=== PATIENT | male | born 1990 | race Caucasian/White ===

== ENCOUNTER → 2017-02-06 | Outpatient (CLI) | payer OTHER ==
[~2017-02-06] MED LIST: NOHOMEMEDICATIONS
[2017-02-06 14:20] VITALS: BP 136/81
[2017-02-06 14:35] VITALS: BP 137/83
== END ==
LOC: OPONC 06:31
DX: D75.1 Secondary polycythemia (principal)
CPT/HCPCS: 95100

== ENCOUNTER → 2017-03-01 | Outpatient (CLI) | payer OTHER ==
[2017-03-01 14:05] VITALS: BP 142/74
[2017-03-01 14:21] VITALS: BP 131/75
[2017-03-01 14:40] LABS: HEMOGLOBIN 19.9 gm/dL (14.0-18.0)
[2017-03-01 14:41] LABS: HEMATOCRIT 60.1 % (42.0-52.0)
== END ==
LOC: OPONC 00:18 → CATH 12:02 → OPONC 12:04
PROVIDERS: Family Medicine
DX: D75.1 Secondary polycythemia (principal)
CPT/HCPCS: 95100

== ENCOUNTER → 2017-04-05 | Outpatient (CLI) | payer OTHER ==
[2017-04-05 14:15] VITALS: BP 136/70
[2017-04-05 14:35] VITALS: BP 144/73
[2017-04-05 14:46] LABS: HEMOGLOBIN 20.2 gm/dL (14.0-18.0)
[2017-04-05 14:48] LABS: HEMATOCRIT 60.7 % (42.0-52.0)
== END ==
LOC: OPONC 00:59
PROVIDERS: Family Medicine
DX: D75.1 Secondary polycythemia (principal)
CPT/HCPCS: 95100

== ENCOUNTER → 2017-04-11 | Outpatient (CLI) | payer OTHER ==
[2017-04-11 10:20] VITALS: BP 131/68
[2017-04-11 10:40] VITALS: BP 123/72
[2017-04-11 10:52] LABS: HEMATOCRIT 57.7 % (42.0-52.0); HEMOGLOBIN 19.3 gm/dL (14.0-18.0)
== END ==
LOC: OPONC 02:22
PROVIDERS: Family Medicine
DX: D75.1 Secondary polycythemia (principal)
CPT/HCPCS: 95100

== ENCOUNTER → 2017-05-10 | Outpatient (CLI) | payer OTHER ==
[2017-05-10 13:45] VITALS: BP 131/71
[2017-05-10 14:05] VITALS: BP 135/85
[2017-05-10 14:33] LABS: HEMOGLOBIN 18.7 gm/dL (14.0-18.0)
== END ==
LOC: OPONC 05-03 09:16
PROVIDERS: Family Medicine
DX: D75.1 Secondary polycythemia (principal)
CPT/HCPCS: 95100

== ENCOUNTER → 2017-06-07 | Outpatient (CLI) | payer OTHER ==
[2017-06-07 14:20] VITALS: BP 145/70
[2017-06-07 14:40] VITALS: BP 150/69
[2017-06-07 14:59] LABS: HEMATOCRIT 54.4 % (42.0-52.0); HEMOGLOBIN 17.7 gm/dL (14.0-18.0)
== END ==
LOC: OPONC 08:06
PROVIDERS: Family Medicine
DX: D75.1 Secondary polycythemia (principal)
CPT/HCPCS: 95100

== ENCOUNTER → 2018-03-28 | Outpatient (CLI) | payer OTHER ==
[2018-03-28 15:00] VITALS: BP 130/82
[2018-03-28 15:16] LABS: HEMOGLOBIN 18.9 gm/dL (14.0-18.0)
[2018-03-28 15:35] VITALS: BP 152/74
== END ==
LOC: OPONC 00:18
PROVIDERS: Family Medicine
DX: D75.1 Secondary polycythemia (principal)
CPT/HCPCS: 95100

== ENCOUNTER → 2019-05-01 | Outpatient (CLI) | payer BC, OTHER ==
[2019-05-01 15:10] VITALS: BP 127/79
[2019-05-01 15:25] VITALS: BP 135/86
--- NOTE | 2019-05-01 15:30 | NUR ---
HERE FOR THERAPEUTIC PHLEBOTOMY FOR HGB 19.[address] GARCIA RECENTLY. HAD PUT OFF EARLIER PHLEBOTOMY D/T WORK AND TRAVEL SCHEDULE. REPORTS DOING WELL, FEELING WELL. LOOKS GREAT. STATES EATING HEALTHIER, DRINKING PLENTY OF WATER AND MANAGING STRESS BETTER. STILL PLAYING SOCCER. TOLERATED TODAY'S PHLEBOTOMY WITHOUT INCIDENT. NO CONCERNS NOTED. ENCOURAGED TDO DRINK PLENTY OF FLUIDS TODAY AND PT VERBALIZES UNDERSTANDING. PT UNABLE TO RETURN FOR A BIT FOR THE 2ND UNIT TO BE REMOVED HE [place] TRAVEL[place]EXT [place]. DISMISSED IN STABLE CONDITION.
== END ==
LOC: OPONC 14:54
DX: D58.2 Other hemoglobinopathies (principal)
CPT/HCPCS: 95100

== ENCOUNTER → 2020-10-20 | Outpatient (CLI) | payer BC ==
[2020-10-20 12:45] VITALS: BP 127/86
[2020-10-20 13:05] VITALS: BP 138/85
--- NOTE | 2020-10-20 13:41 | NUR ---
IN FOR THERAPEUTIC PHLEBOTOMY FOR POLYCYTHEMIA. STATED FEELING WELL. ADMISSION HISTORY AND ASSESSMENT COMPLETED. PATIENT TAKES NO MEDICATION. BLOOD SCALE CALIBRATED AND ZEROED PRIOR TO PHLEBOTOMY. ACCESSED LAC AND REMOVED 1 UNIT, 450 GM USING BAG AND BLOOD SCALE. PATIENT TOLERATED WELL. DRANK SOME WATER AND OBSERVED FOR 20 MINUTES. POST BP GOOD. TO RETURN NEXT SATURDAY FOR THE SAME. DISMISSED IN GOOD CONDITION.
== END ==
LOC: OPONC 09:24
PROVIDERS: ATTEND Family Medicine
DX: D45 Polycythemia vera (principal)
CPT/HCPCS: 95000; 95100

== ENCOUNTER → 2020-10-27 | Outpatient (CLI) | payer BC ==
[2020-10-27 12:40] VITALS: BP 138/97
[2020-10-27 12:55] VITALS: BP 130/90
--- NOTE | 2020-10-27 13:00 | NUR ---
HERE FOR 2ND THERAPEUTIC PHLEBOTOMY FOR HGB 22.9. REPORTS FEELING WELL, DOING WELL. BP AND PULSE UP--PT ATTRIBUTES THIS TO ABOUT 5 CUPS OF COFFEE THIS MORNING. 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 PHLEBOTOMY COMPLETED WITHOUT INCIDENT PER LEFT AC, GOOD FLOW, ONE FULL UNIT WEIGHING 538 GM REMOVED, MEASURED BY USING A CALIBRATED SCALE, ZEROED PRIOR TO USE. VSS STABLE, PT WITHOUT COMPLAINTS UPON COMPLETION. DRINKING WATER AND HEMOSTASIS ACHIEVED PRIOR. DISMISSED IN STABLE CONDITION. PT PLANS TO CALL DR. GARCIA'S OFFICE TO SEE WHEN LABS ARE NEXT DUE AND WILL ALSO ASK IF HE IS A CANDIDATE TO DONATE BLOOD AT THE [facility] TO HELP KEEP HIS HGB DOWN AND HELP THE COMMUNITY WELL.
== END ==
LOC: OPONC 09:06
PROVIDERS: ATTEND Family Medicine
DX: D75.1 Secondary polycythemia (principal)
CPT/HCPCS: 95100